=== PATIENT | female | born 1980 | race Caucasian/White ===

== ENCOUNTER 2018-03-05 12:16 | Emergency (ER) | payer OTHER ==
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
[2018-03-05] MEDS ORDERED: HYDROcodone/Acetaminophen 5/325 mg Tablet ONE (14:11)
[2018-03-05] MEDS ORDERED: Ondansetron ODT 4 MG TAB ONE (14:14)
== END 2018-03-05 14:20 | disposition home or self-care (01) ==
LOC: SCSER 12:16
DX: S16.1XXA Strain of muscle, fascia and tendon at neck level, initial encounter (principal); S46.912A Strain of unspecified muscle, fascia and tendon at shoulder and upper arm level, left arm, initial encounter; S20.212A Contusion of left front wall of thorax, initial encounter; E07.9 Disorder of thyroid, unspecified; F32.9 Major depressive disorder, single episode, unspecified; Z79.899 Other long term (current) drug therapy; V43.52XA Car driver injured in collision with other type car in traffic accident, initial encounter
CPT/HCPCS: 71046; 72125; Q0162